=== PATIENT | male | born 1960 | race Caucasian/White ===

== ENCOUNTER → 2022-10-16 | Outpatient (REF) | LOC: M PLAIMG 12:17 | PROVIDERS: ATTEND Internal Medicine | DX: R52 Pain, unspecified (principal) ==

== ENCOUNTER 2023-05-22 06:44 | Day surgery (SDC) | payer OTHER ==
[~2023-05-22] VITALS: Ht 172.7 cm; Wt 83.0 kg
[~2023-05-22 06:44] MED LIST: ALOG25TA PO; ATOR1TAB21 PO; DOCU100C16 PO; GABA-1171 PO; LEVO125T4 PO; LISI20TA33 PO; METF10004 PO; NS 1,000 ML IV ONE; SENN-83; [UNRECOGNIZED DRUG - CODE]
[2023-05-22] MEDS ORDERED: propofoL 200 MG/20 ML VIAL As Ordered ONE (06:59)
[2023-05-22] MEDS ORDERED: LIDOCAINE 2% 100MG/5ML SDV (FOR ANES.) As Ordered ONE (06:59)
[2023-05-22 08:29] VITALS: TEMP 97.1
[2023-05-22 08:53] VITALS: BP 138/65; O2SAT 97
== END 2023-05-22 09:07 | disposition home or self-care (01) ==
LOC: M OPP 06:44
PROVIDERS: ATTEND Internal Medicine Gastroenterology
DX: K63.5 Polyp of colon (principal); K57.30 Diverticulosis of large intestine without perforation or abscess without bleeding; K64.8 Other hemorrhoids; K63.89 Other specified diseases of intestine; E11.9 Type 2 diabetes mellitus without complications; I10 Essential (primary) hypertension; E78.5 Hyperlipidemia, unspecified; E03.9 Hypothyroidism, unspecified; K58.9 Irritable bowel syndrome, unspecified; F17.210 Nicotine dependence, cigarettes, uncomplicated; Z79.84 Long term (current) use of oral hypoglycemic drugs; Z79.890 Hormone replacement therapy; Z79.899 Other long term (current) drug therapy; Z80.1 Family history of malignant neoplasm of trachea, bronchus and lung; Z82.49 Family history of ischemic heart disease and other diseases of the circulatory system; Z83.3 Family history of diabetes mellitus

== ENCOUNTER → 2023-07-02 | Outpatient (REF) ==
[~2023-07-02] MED LIST changes: -NS 1,000 ML IV ONE
== END ==
LOC: M SLEEP HO 10:00
PROVIDERS: ATTEND Student in an Organized Health Care Education/Training Program
DX: G47.33 Obstructive sleep apnea (adult) (pediatric) (principal)